=== PATIENT | female | born 1995 | race Caucasian/White ===

== ENCOUNTER 2017-06-19 06:06 | Day surgery (SDC) | payer OTHER ==
[2017-06-19] MEDS ORDERED: Ofloxacin 0.3% Ophth Soln ONE ×2 (07:18→11:05)
[2017-06-19] MEDS ORDERED: Atropine 0.4 mg/ml Inj (1 mL) ONE (07:22)
[2017-06-19] MEDS ORDERED: ePHEDrine 50 mg/ml Inj ONE (07:22)
[2017-06-19] MEDS ORDERED: Phenylephrine 10 mg/ml Inj ONE (07:22)
[2017-06-19] MEDS ORDERED: Propofol 10 mg/ml Inj (20 ML) ONE (07:25)
[2017-06-19] MEDS ORDERED: Morphine 10 mg/5 ml Oral Soln PO PRN (08:14)
[2017-06-19] MEDS ORDERED: Lactated Ringer's 1,000 ML IV ONE (10:05)
[2017-06-19] MEDS ORDERED: Lidocaine Hydrochloride 5 ML INJ ONE (10:21)
[2017-06-19 11:20] VITALS: RESP 16
[2017-06-19 12:58] VITALS: BP 112/62; PULSE 86; TEMP 97.2; O2SAT 96
--- NOTE | 2017-06-19 13:16 | OP ---
PROCEDURE DATE: 06/19/2017 PREOPERATIVE DIAGNOSIS: Impacted earwax. POSTOPERATIVE DIAGNOSIS: Impacted earwax. PROCEDURE: Ear exam under anesthesia with removal of impacted earwax bilaterally. SIGNIFICANT FINDINGS: Impacted ear wax on both sides. DESCRIPTION OF PROCEDURE: Patient was brought into the room, placed in the supine position. Anesthesia was initiated through facemask. The patient was draped in the usual manner. The head was turned. The right ear was brought under view using operating microscope and ear speculum. Wax was noted in the ear canal and removed using micro instruments. TM was noted to be intact with no fluid behind it. The head was turned. The other ear was brought into the view using operative microscope and ear speculum. Wax was noted in the ear canal. It was noted to be impacted and removed using micro instruments. TM was noted to be intact with no fluid behind it. The microscope and ear the speculum were taken out of position. The patient was taken off anesthesia and taken to recovery room in stable manner. Syd Grant MD
== END 2017-06-19 12:35 | disposition home or self-care (01) ==
LOC: C.SDS 06:06
PROVIDERS: ATTEND Otolaryngology
DX: H61.23 Impacted cerumen, bilateral (principal)
CPT/HCPCS: 36415; 69210; 84702; J0461; J2370; J2704; J3010; J7120

== ENCOUNTER 2018-01-25 08:10 | Day surgery (SDC) | payer OTHER ==
[2018-01-25 09:29] VITALS: BP 103/71; PULSE 80; RESP 18; TEMP 97.7; O2SAT 97
== END 2018-01-25 09:15 | disposition home or self-care (01) ==
LOC: C.SDS 08:10
PROVIDERS: ATTEND Otolaryngology
DX: H61.23 Impacted cerumen, bilateral (principal); Z53.09 Procedure and treatment not carried out because of other contraindication